=== PATIENT | male | born 1995 | race Two or more races ===

== ENCOUNTER 2016-12-03 15:58 | Emergency (ER) | payer MEDICAID, OTHER ==
[~2016-12-03] VITALS: Wt 78.0 kg
[~2016-12-03 15:58] MED LIST: FLUT9.9S NS; PSEU120T51 PO
[2016-12-03] MEDS ORDERED: FIORICET PO (18:35)
[2016-12-03] MEDS ORDERED: FLUT9.9S NASAL (18:35)
[2016-12-03] MEDS ORDERED: IBUP-1542 PO (18:35)
[2016-12-03] MEDS ORDERED: CETI10CA PO (18:35)
--- NOTE | 2016-12-03 19:30 | ERD ---
ER Documentation Chief Complaint Date/Time DATE: 12/03/16 TIME: 19:26 Chief Complaint headache 1 week HPI 21-year-old male presents here to emergency department for complaints of a headache occipital headache, throbbing pain, 4/10 scale, not better or worse with anything. It radiates to the neck area. Patient also has been having runny nose nasal congestion green nasal discharge. Patient does not have any sore throat or ear pain. Patient does not have any sick contacts. ROS All systems reviewed and are negative except as per history of present illness. Medications Home Meds Active Scripts Acetamin/Butalbital/Caffeine* (Fioricet*) [id number] Tab, 1 TAB PO Q6H Y for PAIN, #30 TAB Prov:GILBERTO MERAZ NP 12/03/16 Ibuprofen* (Motrin*) 600 Mg Tab, 600 MG PO Q6H Y for PAIN AND OR ELEVATED TEMP, #30 TAB Prov:GILBERTO MERAZ NP 12/03/16 Cetirizine Hcl* (Zyrtec*) 10 Mg Capsule, 10 MG PO DAILY, #30 TAB.CHEW Prov:GILBERTO MERAZ NP 12/03/16 Fluticasone Propionate (Flonase Allergy Relief) 9.9 Ml [place].susp, 1 SPRAY NASAL BID, #1 BOTTLE TO EACH NOSTRIL Prov:GILBERTO MERAZ NP 12/03/16 Pseudoephedrine Hcl (Sudafed 12 Hour) 120 Mg Tablet.sa, 120 MG PO BID, #30 Prov:TERESA LIANG PA-C 11/26/14 Fluticasone Propionate (Flonase Allergy Relief) 9.9 Ml [place].susp, 9.9 ML NS DAILY, #30 Prov:TERESA LIANG PA-C 11/26/14 Allergies Allergies: Coded Allergies: No Known Allergy (Unverified , 12/03/16) PMhx/Soc Medical and Surgical Hx: pt denies Medical Hx, pt denies Surgical Hx History of Surgery: No Anesthesia Reaction: No Hx Neurological Disorder: No Hx Respiratory Disorders: No Hx Cardiac Disorders: No Hx Psychiatric Problems: No Hx Miscellaneous Medical Probl: No Hx Alcohol Use: No Hx Substance Use: No Hx Tobacco Use: No Smoking Status: Never smoker FmHx Family History: coronary disease, diabetes, other Physical Exam Vitals Vital Signs Date Time Temp Pulse Resp B/P Pulse Ox O2 Delivery O2 Flow Rate FiO2 12/03/16 16:01 98.0 69 18 146/69 99 Physical Exam GENERAL: The patient is well developed and appropriate for usual state of health, in no apparent distress. CHEST: Clear to auscultation bilaterally. There are no rales, wheezes or rhonchi. HEART: Regular rate and rhythm. No murmurs, clicks, rubs or gallops. No S3 or S4. ABDOMEN: Soft, nontender and nondistended. Good bowel sounds. No rebound or guarding. No gross peritonitis. No gross organomegaly or masses. No Reed sign or McBurney point tenderness. BACK: No midline or flank tenderness. EXTREMITIES: Equal pulses bilaterally. There is no peripheral clubbing, cyanosis or edema. No focal swelling or erythema. Full range of motion. Grossly neurovascularly intact. NEURO: Alert and oriented. Cranial nerves 2-12 intact. Motor strength in all 4 extremities with 5/5 strength. Sensation grossly intact. Normal speech and gait. SKIN: There is no apparent rash or petechia. The skin is warm and dry. HEMATOLOGIC AND LYMPHATIC: There is no evidence of excessive bruising or lymphedema. No gross cervical, axillary, or inguinal lymphadenopathy. Procedures/MDM Medical decision making: Patient symptoms of headache nonspecific at this time, most likely tension headache, can be also viral. Patient also has runny nose nasal congestion consistent with upper respiratory tract infection. No symptoms of acute bacterial rhinosinusitis. No symptoms of pneumonia. No symptoms of any sepsis at this time. No fever. Patient appears once hemodynamically stable. Prescription was given for Fioricet, Flonase, Zyrtec, ibuprofen, is advised to follow-up with primary care doctor in 2-3 days for reevaluation of symptoms. Patient was advised to return to emergency department for any worsening symptoms. Disposition: Home. Stable. Departure Diagnosis: Primary Impression: URI (upper respiratory infection) URI type: unspecified viral URI Qualified Code: J06.9 - Viral upper respiratory tract infection Additional Impression: Headache Headache type: tension-type Headache chronicity pattern: acute headache Intractability: not intractable Qualified Code: G44.209 - Acute non intractable tension-type headache Condition: Stable Patient Instructions: Self-Care for Headaches, Uri, Viral, No Abx (Adult) Referrals: [facility] YOU HAVE RECEIVED A MEDICAL SCREENING EXAM AND THE RESULTS INDICATE THAT YOU DO NOT HAVE A CONDITION THAT REQUIRES URGENT TREATMENT IN THE EMERGENCY DEPARTMENT. FURTHER EVALUATION AND TREATMENT OF YOUR CONDITION CAN WAIT UNTIL YOU ARE SEEN IN YOUR DOCTORS OFFICE WITHIN THE NEXT 1-2 DAYS. IT IS YOUR RESPONSIBILITY TO MAKE AN APPOINTMENT FOR FOLOW-UP CARE. IF YOU HAVE A PRIMARY DOCTOR --you should call your primary doctor and schedule an appointment IF YOU DO NOT HAVE A PRIMARY DOCTOR YOU CAN CALL OUR PHYSICIAN REFERRAL HOTLINE AT IF YOU CAN NOT AFFORD TO SEE A PHYSICIAN YOU CAN CHOSE FROM THE FOLLOWING [facility] [address] [facility]. [facility] [address] [facility]. [facility] [address] [facility] [address] [facility] [facility] [address] [facility]. [facility] [address] [facility]. [facility] YOU HAVE RECEIVED A MEDICAL SCREENING EXAM AND THE RESULTS INDICATE THAT YOU DO NOT HAVE A CONDITION THAT REQUIRES URGENT TREATMENT IN THE EMERGENCY DEPARTMENT. FURTHER EVALUATION AND TREATMENT OF YOUR CONDITION CAN WAIT UNTIL YOU ARE SEEN IN YOUR DOCTORS OFFICE WITHIN THE NEXT 1-2 DAYS. IT IS YOUR RESPONSIBILITY TO MAKE AN APPOINTMENT FOR FOLOW-UP CARE. IF YOU HAVE A PRIMARY DOCTOR --you should call your primary doctor and schedule and appointment IF YOU DO NOT HAVE A PRIMARY DOCTOR YOU CAN CALL OUR PHYSICIAN REFERRAL HOTLINE AT . IF YOU CAN NOT AFFORD TO SEE A PHYSICIAN YOU CAN CHOSE FROM THE FOLLOWING [facility] INSTITUTIONS: [facility] [address] [place] [address] [facility] [address] [place] [address] [facility] + [facility] [address] [place] [address] GILBERTO MERAZ NP Dec 03, 2016 19:30
[2016-12-04] MEDS ORDERED: PRED20TA PO (14:56)
[2016-12-04] MEDS ORDERED: AZIT500T3 PO (14:56)
== END 2016-12-03 18:43 | disposition home or self-care (01) ==
LOC: FTE 15:58
DX: J06.9 Acute upper respiratory infection, unspecified (principal); G44.209 Tension-type headache, unspecified, not intractable
CPT/HCPCS: 99283

== ENCOUNTER 2016-12-04 14:07 | Emergency (ER) | payer MEDICAID ==
[~2016-12-04] VITALS: Wt 120.5 kg
[~2016-12-04 14:07] MED LIST changes: +CETI10CA PO; +FIORICET PO; +FLUT9.9S NASAL; +IBUP-1542 PO
[2016-12-04] MEDS ORDERED: PRED20TA PO (14:56)
[2016-12-04] MEDS ORDERED: AZIT500T3 PO (14:56)
--- NOTE | 2016-12-04 14:59 | ERD ---
ER Documentation Chief Complaint Date/Time DATE: 12/04/16 TIME: 14:57 Chief Complaint head pressure, sob, congestion, onset 4 days HPI This 21-year-old male presents with congestion and cough for the last 5 days. He has occasional purulent sputum. He denies any fevers. He denies any significant shortness breath or chest pain. Is taking Zyrtec and Flonase without relief. ROS All systems reviewed and are negative except as per history of present illness. Medications Home Meds Active Scripts Prednisone* (Prednisone*) 20 Mg Tab, 40 MG PO DAILY for 4 Days, TAB Prov:RELL ST MD 12/04/16 Azithromycin* (Zithromax*) 500 Mg Tablet, 500 MG PO DAILY for 3 Days, TAB Prov:RELL ST MD 12/04/16 Acetamin/Butalbital/Caffeine* (Fioricet*) [id number] Tab, 1 TAB PO Q6H Y for PAIN, #30 TAB Prov:GILBERTO MERAZ NP 12/03/16 Ibuprofen* (Motrin*) 600 Mg Tab, 600 MG PO Q6H Y for PAIN AND OR ELEVATED TEMP, #30 TAB Prov:GILBERTO MERAZ NP 12/03/16 Cetirizine Hcl* (Zyrtec*) 10 Mg Capsule, 10 MG PO DAILY, #30 TAB.CHEW Prov:GILBERTO MERAZ NP 12/03/16 Fluticasone Propionate (Flonase Allergy Relief) 9.9 Ml [place].susp, 1 SPRAY NASAL BID, #1 BOTTLE TO EACH NOSTRIL Prov:GILBERTO MERAZ NP 12/03/16 Pseudoephedrine Hcl (Sudafed 12 Hour) 120 Mg Tablet.sa, 120 MG PO BID, #30 Prov:TERESA LIANG PA-C 11/26/14 Fluticasone Propionate (Flonase Allergy Relief) 9.9 Ml [place].susp, 9.9 ML NS DAILY, #30 Prov:TERESA LIANG PA-C 11/26/14 Allergies Allergies: Coded Allergies: No Known Allergy (Unverified , 12/04/16) PMhx/Soc Medical and Surgical Hx: pt denies Medical Hx, pt denies Surgical Hx History of Surgery: No Anesthesia Reaction: No Hx Neurological Disorder: No Hx Respiratory Disorders: No Hx Cardiac Disorders: No Hx Psychiatric Problems: No Hx Miscellaneous Medical Probl: No Hx Alcohol Use: No Hx Substance Use: No Hx Tobacco Use: No Smoking Status: Never smoker Physical Exam Vitals Vital Signs Date Time Temp Pulse Resp B/P Pulse Ox O2 Delivery O2 Flow Rate FiO2 12/04/16 14:09 99.2 97 18 155/79 98 Physical Exam Const: [], [id number]-[id number]. Head: Atraumatic Eyes: Normal Conjunctiva ENT: Normal External Ears, Nose and Mouth. This in the maxillary and Frontal sinus area. 3+ nasal congestion. Postnasal drip. Neck: Full range of motion..~ No meningismus. Resp: Clear to auscultation bilaterally Cardio: Regular rate and rhythm, no murmurs Abd: Soft, non tender, non distended. Normal bowel sounds Skin: No petechiae or rashes Back: No midline or flank tenderness Ext: No cyanosis, or edema Neur: Awake and alert Psych: Normal Mood and Affect Procedures/MDM Patient presents with URI symptoms has nasal congestion frontal headache. Symptoms are consistent with sinusitis or other he may have nonspecific URI or allergic symptoms as well. Given the duration and symptoms despite conservative treatment he will be treated with Zithromax, prednisone and continuation of Zyrtec and Flonase and ibuprofen. The patient was stable with no new complaints during the ER course. Clinically, there is no current evidence to suggest meningitis, sepsis, acute abdomen, pneumonia, acute coronary syndrome, pulmonary embolism, or any other emergent condition appearing to require further evaluation or hospitalization. The patient should certainly return for any new or worsening symptoms per the aftercare instructions. They should otherwise follow-up with her primary care doctor for reevaluation this week. Departure Diagnosis: Primary Impression: Sinusitis Sinusitis location: unspecified location Chronicity: unspecified Qualified Code: J32.9 - Sinusitis, unspecified chronicity, unspecified location Additional Impression: Upper respiratory infection URI type: unspecified URI Qualified Code: J06.9 - Upper respiratory tract infection, unspecified type Condition: Stable Patient Instructions: Sinusitis, Abx Tx Additional Instructions: Recheck for new or worsening symptoms or primary care doctor. RELL ST MD Dec 04, 2016 14:59
== END 2016-12-04 15:10 | disposition home or self-care (01) ==
LOC: FTE 14:07
DX: J32.9 Chronic sinusitis, unspecified (principal); J06.9 Acute upper respiratory infection, unspecified
CPT/HCPCS: 99284

== ENCOUNTER 2016-12-15 13:47 | Emergency (ER) | payer MEDICAID ==
[~2016-12-15] VITALS: Ht 182.9 cm; Wt 118.0 kg
[~2016-12-15 13:47] MED LIST changes: +AZIT500T3 PO; +PRED20TA PO
[2016-12-15 13:50] VITALS: Ht 182.9 cm; Wt 118.0 kg
--- NOTE | 2016-12-15 14:18 | ERD ---
ER Documentation Chief Complaint Chief Complaint neck pain x 4 days HPI 21-year-old male otherwise healthy presents emergency room department with right -sided neck pain as well as anterior neck pain that is described as pressure for the last 4 days. He reports that he has a history of sinus congestion, but has not had any sore throat, cough, runny nose or fevers or chills. The pain is in the anterior neck when he points to scaling. He has not had any trouble swallowing, voice changes or drooling. ROS All systems reviewed and are negative except as per history of present illness. Medications Home Meds Active Scripts Cetirizine Hcl* (Zyrtec*) 10 Mg Capsule, 10 MG PO DAILY, #30 TAB Prov:CHARLOTTE OVIEDO PA-C 12/15/16 Mometasone Furoate* (Nasonex*) 50 Mcg/Rotan - 17 Gm [place].pump, 1 SPRAY NASAL BID, #1 BOTTLE IN EACH NOSTRIL Prov:CHARLOTTE OVIEDO PA-C 12/15/16 Ibuprofen* (Motrin*) 600 Mg Tab, 600 MG PO Q6, #30 TAB Prov:CHARLOTTE OVIEDO PA-C 12/15/16 Prednisone* (Prednisone*) 20 Mg Tab, 40 MG PO DAILY for 4 Days, TAB Prov:RELL ST MD 12/04/16 Azithromycin* (Zithromax*) 500 Mg Tablet, 500 MG PO DAILY for 3 Days, TAB Prov:RELL ST MD 12/04/16 Acetamin/Butalbital/Caffeine* (Fioricet*) [id number] Tab, 1 TAB PO Q6H Y for PAIN, #30 TAB Prov:GILBERTO MERAZ NP 12/03/16 Ibuprofen* (Motrin*) 600 Mg Tab, 600 MG PO Q6H Y for PAIN AND OR ELEVATED TEMP, #30 TAB Prov:GILBERTO MERAZ NP 12/03/16 Cetirizine Hcl* (Zyrtec*) 10 Mg Capsule, 10 MG PO DAILY, #30 TAB.CHEW Prov:GILBERTO MERAZ NP 12/03/16 Fluticasone Propionate (Flonase Allergy Relief) 9.9 Ml [place].susp, 1 SPRAY NASAL BID, #1 BOTTLE TO EACH NOSTRIL Prov:GILBERTO MERAZ STEINBERG TBinh SEGOVIA 12/03/16 Pseudoephedrine Hcl (Sudafed 12 Hour) 120 Mg Tablet.sa, 120 MG PO BID, #30 Prov:TERESA LIANG PA-C 11/26/14 Fluticasone Propionate (Flonase Allergy Relief) 9.9 Ml [place].susp, 9.9 ML NS DAILY, #30 Prov:TERESA LIANG PA-C 11/26/14 Allergies Allergies: Coded Allergies: No Known Allergy (Unverified , 12/15/16) PMhx/Soc History of Surgery: No Anesthesia Reaction: No Hx Neurological Disorder: No Hx Respiratory Disorders: No Hx Cardiac Disorders: No Hx Psychiatric Problems: No Hx Miscellaneous Medical Probl: No Hx Alcohol Use: No Hx Substance Use: No Hx Tobacco Use: No Physical Exam Vitals Vital Signs Date Time Temp Pulse Resp B/P Pulse Ox O2 Delivery O2 Flow Rate FiO2 12/15/16 13:50 98.0 98 18 166/87 98 Physical Exam General: Well-developed, well-nourished. The patient appears in no acute distress. HEENT: Head is normocephalic, atraumatic. No scleral icterus. Pupils are equal , round, and reactive. Oropharynx is clear. Neck: Supple. Nontender. Soft tissue tenderness of the right lateral neck, no masses, no meningismus. No thyromegaly or masses. Lungs: Clear to auscultation. Normal air movement. Heart: Regular rate and rhythm. S1 and S2 are normal. No murmurs, gallops, or rubs. Abdomen: Soft, nontender, nondistended. Bowel sounds are normoactive. Extremities: No clubbing or cyanosis. Normal pulses. Moving extremities x 4. No weakness. Neurologic: Alert and oriented 3. No focal deficits. Skin: Normal turgor. No rash or lesions. Result Diagram: 12/15/16 1455 12/15/16 1455 Results 24 hrs DIAGNOSTIC IMAGING REPORT Patient: ARLET FERNANDEZ : 1995 Age: 21 Sex: M MR #: [id number] DOS: 12/15/16 1414 Ordering MD: CHARLOTTE OVIEDO PA-C Location: [facility] Room/Bed: PROCEDURE: CT scan of the neck with contrast. CLINICAL INDICATION: Anterior right lateral neck pressure and pain. TECHNIQUE: CT scan of the neck was performed using multidetector scanner. Contiguous axial images were obtained throughout the neck with coronal and sagittal reformatted images. The patient was examined following the uncomplicated intravenous administration of 100 cc of Omnipaque-300. No complications occurred. One or more the following does reduction techniques were utilized: Automated exposure control, adjustment of the mA/ or kV according to patient's size, or use of iterative reconstruction technique. The exam CTDI = 10.29 and the DLP equals 252.18 mGy-cm. COMPARISON: None available FINDINGS: Evaluation of the aerodigestive tract demonstrates no exophytic mass, nor areas of focal mass effect. Evaluation of the cervical lymph chains demonstrate mildly prominent cervical lymph nodes more pronounced in left level II measuring up to 1.3 x 1.1 cm. The salivary glands are unremarkable in appearance. Thyroid gland is without dominant nodule. No acute osseous abnormality is noted. IMPRESSION: 1. No focal neck mass. 2. Mildly prominent cervical lymph nodes more pronounced in left level II measuring up to 1.3 x 1.1 cm. RPTAT: HH .Madelin Milner MD, MD Date Time Electronically viewed and signed by .Madelin Milner MD, MD on 12/15/2016 16: 20 .N/ CC: CHARLOTTE OVIEDO PA-C Laboratory Tests Test 12/15/16 14:55 White Blood Count 7.410^3/ul Red Blood Count 4.9710^6/ul Hemoglobin 14.7g/dl Hematocrit 44.1% Mean Corpuscular Volume 88.7fl Mean Corpuscular Hemoglobin 29.6pg Mean Corpuscular Hemoglobin Concent 33.3g/dl Red Cell Distribution Width 12.6% Platelet Count 28922^3/UL Mean Platelet Volume 9.8fl Neutrophils % 56.4% Lymphocytes % 36.5% Monocytes % 5.7% Eosinophils % 0.9% Basophils % 0.4% Nucleated Red Blood Cells % 0.0/100WBC Neutrophils # 4.210^3/ul Lymphocytes # 2.710^3/ul Monocytes # 0.410^3/ul Eosinophils # 0.110^3/ul Basophils # 0.010^3/ul Nucleated Red Blood Cells # 0.010^3/ul Sodium Level 144mmol/L Potassium Level 3.9mmol/L Chloride Level 106mmol/L Carbon Dioxide Level 29mmol/L Anion Gap 13 Blood Urea Nitrogen 12mg/dl Creatinine 0.83mg/dl Glucose Level 81mg/dl Calcium Level 9.3mg/dl Thyroid Stimulating Hormone (TSH) 0.965MIU/L Current Medications Medications (Trade) Dose Ordered Sig/Matt Route PRN Reason Start Time Stop Time Status Last Admin Dose Admin IV Flush 10 ml 10 ml STK-MED ONCE .ROUTE 12/15/16 15:54 12/15/16 15:55 DC 12/15/16 16:01 Sodium Chloride (NS) 100 ml @ ud STK-MED ONCE .ROUTE 12/15/16 15:54 12/15/16 15:55 DC 12/15/16 16:06 Iohexol (Omnipaque 300mg/ ml) 150 ml STK-MED ONCE .ROUTE 12/15/16 15:54 12/15/16 15:55 DC 12/15/16 16:06 Procedures/MDM 21-year-old male presents with cervical lymphadenopathy on the CT scan, no masses, no evidence of thyroid masses, abscess, deep space infection. All labs are normal, as well as thyroid function is stable for outpatient management. Departure Diagnosis: Primary Impression: Cervical lymphadenopathy Condition: CHARLOTTE Connolly PA-C Dec 15, 2016 14:18
[2016-12-15 15:13] LABS: BASOPHILS % 0.4 % (0.0-2.0); EOSINOPHILS # 0.1 10^3/ul (0.0-0.5); EOSINOPHILS % 0.9 % (0.0-7.0); HEMATOCRIT 44.1 % (42.0-52.0); HEMOGLOBIN 14.7 g/dl (14.0-18.0); LYMPHOCYTES # 2.7 10^3/ul (0.8-2.9); LYMPHOCYTES % 36.5 % (18.0-55.0); MEAN CORPUSCULAR HEMOGLOBIN 29.6 pg (29.0-33.0); MEAN CORPUSCULAR HGB CONC 33.3 g/dl (32.0-37.0); MEAN CORPUSCULAR VOLUME 88.7 fl (72.0-104.0); MEAN PLATELET VOLUME 9.8 fl (7.4-10.4); MONOCYTE # 0.4 10^3/ul (0.3-0.9); MONOCYTES % 5.7 % (0.0-13.0); NEUTROPHIL # 4.2 10^3/ul (1.6-7.5); NEUTROPHILS % 56.4 % (30.0-74.0); PLATELET COUNT 232 10^3/UL (140-415); RED BLOOD COUNT 4.97 10^6/ul (4.70-6.10); RED CELL DISTRIBUTION WIDTH 12.6 % (11.5-14.5); WHITE BLOOD COUNT 7.4 10^3/ul (4.8-10.8)
[2016-12-15 15:31] LABS: CALCIUM 9.3 mg/dl (8.4-10.2); CREATININE 0.83 mg/dl (0.61-1.24); POTASSIUM 3.9 mmol/L (3.5-5.1)
[2016-12-15] MEDS ORDERED: IOHEXOL 300MG/ML 150 ML BTL ONE (15:54)
[2016-12-15] MEDS ORDERED: SOD CHLORIDE 0.9% 100 ML ONE (15:54)
[2016-12-15 16:02] LABS: THYROID STIMULATING HORMONE 0.965 MIU/L (0.465-4.680)
--- NOTE | 2016-12-15 16:21 | RADRPT ---
PROCEDURE: CT scan of the neck with contrast. CLINICAL INDICATION: Anterior right lateral neck pressure and pain. TECHNIQUE: CT scan of the neck was performed using multidetector scanner. Contiguous axial images were obtained throughout the neck with coronal and sagittal reformatted images. The patient was ex amined following the uncomplicated intravenous administration of 100 cc of Omnipaque-300. No compli cations occurred. One or more the following does reduction techniques were utilized: Automated expos ure control, adjustment of the mA/ or kV according to patient's size, or use of iterative reconstruc tion technique. The exam CTDI = 10.29 and the DLP equals 252.18 mGy-cm. COMPARISON: None available FINDINGS: Evaluation of the aerodigestive tract demonstrates no exophytic mass, nor areas of focal mass effect . Evaluation of the cervical lymph chains demonstrate mildly prominent cervical lymph nodes more prono unced in left level II measuring up to 1.3 x 1.1 cm. The salivary glands are unremarkable in appearance. Thyroid gland is without dominant nodule. No acute osseous abnormality is noted. IMPRESSION: 1. No focal neck mass. 2. Mildly prominent cervical lymph nodes more pronounced in left level II measuring up to 1.3 x 1.1 cm. RPTAT: HH .Madelin Milner MD, Date Time Electronically viewed and signed by .Madelin Milner MD, MD on 12/15/2016 16:20 .N/
[2016-12-15] MEDS ORDERED: NASO17 NASAL (16:26)
[2016-12-15] MEDS ORDERED: CETI10CA PO (16:26)
[2016-12-15] MEDS ORDERED: IBUP-1542 PO (16:26)
== END 2016-12-15 16:43 | disposition home or self-care (01) ==
LOC: FTE 13:47
DX: R59.0 Localized enlarged lymph nodes (principal)
CPT/HCPCS: 70491; 80048; 84443; 85025; Q9967; Z7610; 36415

== ENCOUNTER 2017-12-24 14:27 | Emergency (ER) | END 2017-12-24 17:12 | disposition home or self-care (01) ==